=== PATIENT | female | born 1955 | race Caucasian/White ===

== ENCOUNTER 2016-11-03 21:29 | Emergency (ER) | payer OTHER ==
[~2016-11-03] VITALS: Ht 162.6 cm; Wt 120.7 kg
[2016-11-03 22:05] LABS: BASOPHILS % (AUTO) 0 % (0-2); EOSINOPHILS # (AUTO) 0.1 10^3uL; EOSINOPHILS % (AUTO) 1 % (0-4); MEAN CORPUSCULAR HEMOGLOBIN 28.2 PG (26.0-34.0); MEAN CORPUSCULAR HGB CONC 32.4 g/dL (31.0-37.0); MEAN CORPUSCULAR VOLUME 87 FL (80-100); MEAN PLATELET VOLUME 10.1 FL (6.0-9.5); MONOCYTES # (AUTO) 0.5 X10^3; MONOCYTES % (AUTO) 7 % (3-11); NEUTROPHILS # (AUTO) 4.9 X10^3; NEUTROPHILS % (AUTO) 65 % (51-67); PLATELET COUNT 205 10^3uL (150-450)
[2016-11-03] MEDS ORDERED: DABIGATRAN 75 MG (PRADAXA) CAPSULE PO ONE (22:10)
[2016-11-03] MEDS ORDERED: DABIGATRAN 150 MG (PRADAXA) CAPSULE PO ONE (22:10)
[2016-11-03] MEDS ORDERED: SOTALOL 120 MG PO ONE (22:10)
[2016-11-03 22:18] LABS: ALBUMIN 4.1 g/dL (3.4-5.0); ALKALINE PHOSPHATASE 88 U/L (38-126); ANION GAP 12.2 MEQ/L (3-15); BUN/CREATININE RATIO 22 (10-20); CALCULATED IONIZED CALCIUM 3.9 mg/dL (3.8-4.6); CREATINE KINASE 184 U/L (30-135); TOTAL PROTEIN 7.5 g/dL (6.4-8.5)
--- NOTE | 2016-11-03 22:24 | NUR ---
OKDAVID GODDARD MD TO NOT START IV. IV ORDER CANCELLED IN COMPUTER.
--- NOTE | 2016-11-03 22:25 | NUR ---
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
[2016-11-03] MEDS ORDERED: SOTALOL 80 MG (BETAPACE) TAB PO ONE (22:50)
[2016-11-03 23:07] VITALS: BP 125/42
== END 2016-11-03 23:08 | disposition home or self-care (01) ==
LOC: ED 21:30
DX: I48.0 Paroxysmal atrial fibrillation (principal); E11.9 Type 2 diabetes mellitus without complications
CPT/HCPCS: 36415; 71010; 80053; 82550; 82553; 84484; 85025; 85610; 85730; 93005; 93010; 99284